=== PATIENT | male | born 1985 | race Two or more races ===

== ENCOUNTER 2018-02-21 02:01 | Emergency (ER) | payer OTHER, SELFPAY ==
[2018-02-21 02:04] VITALS: BP 159/95; PULSE 95; RESP 18; TEMP 36.4; O2SAT 98; BMI 25.8
--- NOTE | 2018-02-21 02:13 | RAD_ITS ---
STUDY: X-RAY - LEFT ANKLE REASON FOR EXAM: Male, 32 years old. Ankle pain, no known injury. TECHNIQUE: 3 view(s) of the ankle. COMPARISON: None. FINDINGS: Normal visualized distal tibia and fibula. Normal medial and lateral malleoli. Normal tibiotalar articulation and ankle mortise. Normal visualized talus and calcaneus. The visualized subtalar, talonavicular, calcaneocuboid and tarsal articulations are normal. The soft tissue structures are unremarkable. RAD/Ankle min 3 Views IMPRESSION: Normal x-ray examination of the ankle. Electronically Signed: Calos Gibson MD at 2:42 EDT , Service support ,
[2018-02-21] MEDS: Ketorolac 60 MG/2 ML Vial IM (02:23)
--- NOTE | 2018-02-21 02:38 | ED.VISSUMM ---
- ER Visit Summary Date of Service: 02/21/18 Chief Complaint: [] Left ankle pain History of Present Illness: The patient is a 32 M stated this evening around 9 PM he developed some pain in his left ankle. Does not remember doing anything specific but has been doing a lot of walking on it recently. He took a diclofenac tablet this evening with minimal relief. He had that for remote back pain. Current severity is mild to moderate worse with movement. It felt mildly warm. It radiates up to his lateral leg. No swelling. No previous pain in this area. Physical Examination: Vital signs reviewed General: Well-nourished well-developed Head: Normocephalic atraumatic Eyes: Pupils equal round and reactive to light extraocular movements intact ENT: TMs clear no hemotympanum no trauma Neck: Nontender full range of motion Cardiovascular: Regular rate rhythm no murmurs normal S1-S2 Respiratory: No distress clear to auscultation bilaterally chest nontender Abdomen: Soft nontender nondistended normal bowel sounds no masses Back: Nontender no CVA tenderness Extremities: His left lateral malleolus with very mild warmth to this area. No redness. No significant swelling. Decreased range of motion secondary to pain. Neuro alert oriented cranial nerves II through XII intact normal strength sensation reflexes Test Results: [] Emergency Department Course and Treatment: [] X-ray shows no fracture. At this time patient likely has inflammation to his ankle ligaments. I do not think he has a blood clot. There is no pain in his calf. His only in his left lateral ankle. I do not feel this is gout or infection. He was given a shot of Toradol and David bandage and ice. He will continue ibuprofen at home and was given a prescription for 800 mg. This is likely inflammation of his ankle ligaments. Treatment Plan: [] Disposition: [] Impression: [] Ankle pain L This note was generated with [employer] dictation software. It may contain incorrect words, spelling, and punctuation that were not noted in review of the chart prior to signing ED Disposition - Plan for ED Patient: Chief Complaint: Lower Extremity Injury Prescriptions: Ibuprofen 800 mg PO TID #20 tab Referrals: Care Physician,No Primary [Primary Care Provider] -
--- NOTE | 2018-02-21 02:40 | ED.DEP ---
ED Disposition - Plan for ED Patient: Disposition: Home or Assisted Living Chief Complaint: Lower Extremity Injury Instructions: ED Sprain Ankle W X Ray Prescriptions: Ibuprofen 800 mg PO TID #20 tab Referrals: Care Physician,No Primary [Primary Care Provider] - Tapan Salmeron DO [NON CLINICAL AFFILIATE] -
[2018-02-21 02:51] VITALS: RESP 16
--- NOTE | 2018-02-21 02:51 | NURSING ---
PT STATES THAT THE TORADOL HELPED WITH HIS PAIN.
== END 2018-02-21 02:52 | disposition home or self-care (01) ==
PROVIDERS: Emergency Provider Emergency Medicine
DX: M25.572 Pain in left ankle and joints of left foot (principal)
CPT/HCPCS: 73610; 96372; 99282

== ENCOUNTER → 2018-07-25 07:32 | Outpatient (CLI) | payer OTHER, SELFPAY | PROVIDERS: Visit Provider Otolaryngology | DX: H71.92 Unspecified cholesteatoma, left ear (principal) | CPT/HCPCS: 70480 ==

== ENCOUNTER 2018-09-14 05:51 | Day surgery (SDC) | payer OTHER, SELFPAY ==
[2018-09-14] VITALS (10 sets, daily range): BP systolic 108–140; BP diastolic 7–75; PULSE 77–102; RESP 16; TEMP 35.6–36.8; O2SAT 97–100; BMI 24.7
--- NOTE | 2018-09-14 | CHO_PTH ---
PATIENT: CYRUS LEES LOC: [facility] – [place] U#:[id number] AGE/SX: 33/M ROOM: RE09/14/[address]: Dr. Ricco Schilling MD : [id number] BED: DIS: 09/14/2018 SPEC #: [id number] RECD: 09/14/18 14:01 STATUS: ANA SRIRAM #: [id number] MIKEY: 09/14/18 00:[address]: Ricco Schilling DEPT: SURGICAL PATHOLOGY RECD BY: Milo Broussard ENTERED: 09/14/18 14:01 SP TYPE: CHOLESTEAT WOLF DR: No Primary Care Phys Tissues: Ear, NOS Procedures: Decalcification bone/plaque Surgery Specimen Level III HEADER OPERATION: Tympanomastoidectomy with ossicular reconstruction PRE-OP DIAGNOSIS: Cholesteatoma of mastoid - left ear, conductive hearing loss TISSUE SUBMITTED: Cholesteatoma and incus - left ear MICROSCOPIC DIAGNOSIS Cholesteatoma and incus, left ear: Consistent with cholesteatoma. A piece of bone with reactive changes. MINDY:kaushal 09/18/18 MICROSCOPIC DESCRIPTION Slides are reviewed. GROSS DESCRIPTION Received is one container labeled with the patient's name and not further designated. The specimen consists of multiple irregular fragments of bosch soft tissue mixed with fragments of bone that in aggregate measure 2.5 x 0.3 x 0.1 cm. The entire specimen is submitted in one cassette after decalcification. / MINDY:kaushal 09/14/18 TC:5 CPT: 62266, 82404
[2018-09-14 06:33] LABS: Hematocrit 46.1 % (40-54); Hemoglobin 15.4 g/dl (13.0-16.5); Mean Corp Hgb Conc 33.4 g/gl (32-36); Mean Corpuscular Hgb 30.7 pg (27.0-32.0); Platelet Count 231 K/mm3 (150-450); RBC Distribution Width CV 12.1 % (11.6-14.6); RBC Distribution Width SD 40.4 fl (35.1-43.9); Red Blood Count 5.01 M/mm3 (4.6-6.2); White Blood Count 7.7 K/mm3 (4.4-11.0)
[2018-09-14 06:37] LABS: Scan Indicated on CBC? Y/N NO
--- NOTE | 2018-09-14 07:34 | DCINST_ITS ---
You will use the following diet at home:: Regular Your food should be the consistency of: Regular Discharge Activity: Return to Normal Activity Additional Activity Instructions:: Remove dressing tomorrow morning. Replace cotton ball as needed. Keep the inside of the ear dry. May shower on Tuesday and get the incision wet. Allergies/Adverse Reactions: Allergies No Known Allergies Allergy (Verified 09/04/18 11:02) Medications to take at Discharge NK 09/04/18 Primary Care Physician: Care Physician,No Primary [Primary Care Provider] - Test Results: Test results from this visit will be discussed in further detail at your follow- up appointment, if applicable.
[2018-09-14] MEDS: Ciprofloxacin 0.3% 2.5ml Bottle 1 DRP (08:10)
[2018-09-14] MEDS: BACITRACIN/POLYMYXIN B 15 GM Tube 1 APPLIC (11:00)
--- NOTE | 2018-09-14 12:00 | OP.PCM_ITS ---
Report of Operation Date of Procedure: 09/14/18 Pre-Operative Diagnosis: left cholesteatoma. conductive hearing loss Post-Operative Diagnosis: same Surgery/Procedure Performed:: Left tympanomastoidectomy (canal wall down) with ossicular reconstruction Description of Surgical Findings:: intact facial nerve. Incus and stapes missing. Cholesteatoma extending into the mastoid. Type of Anesthesia:: General Anesthesiologist: Oscar Zaldivar Specimen's removed: cholesteatoma, incus Estimated Blood Loss (mL): minimal Description of Procedure: The patient was taken to the operating room on 09/14/18. He was placed in the supine position on the OR table. He was given sufficient general endotracheal anestheisia. The [facility] facial nerve monitor was used and electrodes were placed in the orbicullaris oculi and miriam. The function of the monitor was verified. The left ear was prepped and draped steriley. 1% lidocaine with epinephrine ([id number]) was injected into the post auricular crease. The operating microscope was used throughout the entire case. Betadine was suctioned from the canal. I then injected local into the canal skin. A standard post auricular incision was made with a 15 blade. Hemostasis was achieved with bipolar cautery. I then established a plane on the temporalis fascia. A temporalis fascia graft was harvested sharply and dried on a cutting block. Next a standard T shaped incision was make in the periosteum with a 15 blade. A lempert elevator was used to elevate the periosteum. Self retaining retractors were then used. I elevated the canal skin posteriorly. Next, canal incisions were made with a round and straight bever blade and the skin was elevated out of the monik canal and placed in the self retaining retractor. Next, I elevated the tympanomeatal flap. The tympanic membrane was completely plastered down to the middle ear mucosa inferior to the malleus. This portion of the TM was removed. Next I elevated the TM over the oval window. A small piece of the anterior mary was left and adhered to the TM. The stapedial tendon was cut to allow mobility of the TM. Next, mastoidectomy was performed with serially smaller cutting and kylah burs. The tegmen was very low lying. The dura was identified but not breached. I elected to take down the canal wall. This was accomplished with the drill. I was then able to fully removed the cholesteatoma and remnant incus. The cavity was irrigated with saline and all bone dust was evacuated. Next, I used a [place] TORP. I cut this to the appropriate size and placed this on the round window. I then performed meatoplasty. Back cuts were made in the conchal cartilage through and through with an 11 blade. The cartilage was removed. Next, the middle ear was filled with cipro impregnated gelfoam. I then cut the fascia graft to the correct size and placed this in an underlay fashion circumferentially around the anulus. The tympanomeatal flap was then redraped lateral to the graft. Superiorly, the graft was placed beneath the remnant TM anteriorly and superiorly and also medial to the malleus. The graft was then draped superiorly on the facial ridge. I then placed gelfoam on the graft on the facial ridge. Gelfilm was placed in the sulcus inferiorly on the TM. The canal was then filled with antibiotic ointment. I then draped the skin of the lorenzo into the mastoid cavity. An august pack was placed and inflated with cipro. The incision was closed with interrupted 4-0 Vicryl subcuticular. Steri strips were applied. A [place] dressing was then applied. The patient was awoken and brought to the recovery room in stable condition. Blood loss minimal, replacement none, sponge, needle and instrument count were correct at the end of the procedure.
== END 2018-09-14 14:55 | disposition home or self-care (01) ==
LOC: SDC 05:51 → AC 05:53
PROVIDERS: Referring Provider Otolaryngology; Visit Provider Otolaryngology
PROC: (CPT 69641; principal; 2018-09-14 07:00)
DX: H71.22 Cholesteatoma of mastoid, left ear (principal); H90.2 Conductive hearing loss, unspecified; M79.605 Pain in left leg; M79.604 Pain in right leg; R51 Headache
CPT/HCPCS: 00120; 69646; 36415; 85027; 88304; 88311; J7120; J2405